=== PATIENT | male | born 1950 | race Caucasian/White ===

== ENCOUNTER 2018-04-10 07:35 | Day surgery (SDC) | payer OTHER | END 2018-04-10 13:50 | disposition home or self-care (01) | LOC: AMB-ENDOS 07:35 | DX: C20 Malignant neoplasm of rectum (principal); D12.2 Benign neoplasm of ascending colon; K64.8 Other hemorrhoids ==

== ENCOUNTER 2018-05-07 08:15 | Inpatient (IN) | payer OTHER ==
[~2018-05-07] VITALS: Ht 175.3 cm; Wt 86.2 kg
[2018-05-14] MEDS ORDERED: FERROUS SULFAT325 MG PO (13:55)
[2018-05-14] MEDS ORDERED: ZOLOFT25 MG PO (13:56)
[2018-05-14] MEDS ORDERED: LEVO-T88 MCG PO (13:56)
[2018-05-14] MEDS ORDERED: GABAPENTIN300 MG PO (13:56)
[2018-05-14] MEDS ORDERED: FAMOTIDINE20 MG PO (13:57)
[2018-05-14] MEDS ORDERED: ADRENOID CAPSU1 EACH PO (13:57)
[2018-05-14] MEDS ORDERED: DULCOLAX5 MG PO (13:57)
[2018-05-14] MEDS ORDERED: FOLIC ACID1 MG PO (13:57)
== END 2018-05-23 20:15 | disposition home or self-care (01) | DRG 330 ==
LOC: O/R 05-17 06:30 → SURH 05-17 06:30
PROVIDERS: Colon & Rectal Surgery
PROC: 0DTP4ZZ Resection of Rectum, Percutaneous Endoscopic Approach (ICD-10-PCS; 2018-05-17)
PROC: 0DTQ4ZZ Resection of Anus, Percutaneous Endoscopic Approach (ICD-10-PCS; 2018-05-17)
PROC: 0D1N4Z4 Bypass Sigmoid Colon to Cutaneous, Percutaneous Endoscopic Approach (ICD-10-PCS; 2018-05-17)
PROC: 07TC4ZZ Resection of Pelvis Lymphatic, Percutaneous Endoscopic Approach (ICD-10-PCS; 2018-05-17)
PROC: 0WQF4ZZ Repair Abdominal Wall, Percutaneous Endoscopic Approach (ICD-10-PCS; 2018-05-17)
PROC: 30233N1 Transfusion of Nonautologous Red Blood Cells into Peripheral Vein, Percutaneous Approach (ICD-10-PCS; 2018-05-17)
PROC: 4A1BXSH Monitoring of Gastrointestinal Vascular Perfusion using Indocyanine Green Dye, External Approach (ICD-10-PCS; 2018-05-17)
PROC: 0DTN4ZZ Resection of Sigmoid Colon, Percutaneous Endoscopic Approach (ICD-10-PCS; principal; 2018-05-17 09:00)
DX: C20 Malignant neoplasm of rectum (principal); T81.4XXA Infection following a procedure, initial encounter; L03.311 Cellulitis of abdominal wall; R59.0 Localized enlarged lymph nodes; K43.9 Ventral hernia without obstruction or gangrene; E83.39 Other disorders of phosphorus metabolism; D64.89 Other specified anemias

== ENCOUNTER 2018-05-29 19:05 | Inpatient (IN) | payer OTHER ==
[~2018-05-29] VITALS: Ht 175.3 cm; Wt 89.8 kg
[~2018-05-29 19:05] MED LIST: ADRENOID CAPSU1 EACH PO; DULCOLAX5 MG PO; FAMOTIDINE20 MG PO; FERROUS SULFAT325 MG PO; FOLIC ACID1 MG PO; GABAPENTIN300 MG PO; LEVO-T88 MCG PO; ZOLOFT25 MG PO
== END 2018-07-02 16:16 | disposition home health service (06) | DRG 389 ==
LOC: ER 19:05 → SURG 22:53 → SEC-K 22:53 → SURG 05-30 03:00 → SURH 06-03 14:01
PROC: BT43ZZZ Ultrasonography of Bilateral Kidneys (ICD-10-PCS; 2018-05-31)
PROC: 3E0336Z Introduction of Nutritional Substance into Peripheral Vein, Percutaneous Approach (ICD-10-PCS; principal; 2018-06-02)
PROC: 8E0ZXY6 Isolation (ICD-10-PCS; 2018-06-03)
PROC: BW25Y0Z Computerized Tomography (CT Scan) of Chest, Abdomen and Pelvis using Other Contrast, Unenhanced and Enhanced (ICD-10-PCS; 2018-06-04)
PROC: 02HV33Z Insertion of Infusion Device into Superior Vena Cava, Percutaneous Approach (ICD-10-PCS; 2018-06-06)
PROC: B246ZZZ Ultrasonography of Right and Left Heart (ICD-10-PCS; 2018-06-24)
PROC: BW40ZZZ Ultrasonography of Abdomen (ICD-10-PCS; 2018-06-24)
PROC: BW30Y0Z Magnetic Resonance Imaging (MRI) of Abdomen using Other Contrast, Unenhanced and Enhanced (ICD-10-PCS; 2018-06-26)
PROC: BW3GY0Z Magnetic Resonance Imaging (MRI) of Pelvic Region using Other Contrast, Unenhanced and Enhanced (ICD-10-PCS; 2018-06-26)
DX: K91.31 Postprocedural partial intestinal obstruction (principal); T81.4XXA Infection following a procedure, initial encounter; L03.311 Cellulitis of abdominal wall; N39.0 Urinary tract infection, site not specified; E87.1 Hypo-osmolality and hyponatremia; B49 Unspecified mycosis; C20 Malignant neoplasm of rectum; E86.0 Dehydration; Z93.3 Colostomy status; Y83.3 Surgical operation with formation of external stoma as the cause of abnormal reaction of the patient, or of later complication, without mention of misadventure at the time of the procedure; Y92.098 Other place in other non-institutional residence as the place of occurrence of the external cause; E83.39 Other disorders of phosphorus metabolism; D64.89 Other specified anemias; I80.8 Phlebitis and thrombophlebitis of other sites; B96.1 Klebsiella pneumoniae [K. pneumoniae] as the cause of diseases classified elsewhere; Z16.24 Resistance to multiple antibiotics; B96.5 Pseudomonas (aeruginosa) (mallei) (pseudomallei) as the cause of diseases classified elsewhere
CPT/HCPCS: 72196; 74182